=== PATIENT | male | born 1995 | race Hispanic/Latino ===

== ENCOUNTER 2022-02-14 16:28 | Emergency (ER) | payer BC, SELFPAY ==
[2022-02-14] MEDS ORDERED: Dicyclomine 20 MG/2 ML VIAL ONE (16:57)
[2022-02-14] MEDS ORDERED: Ondansetron ODT 4 MG TAB ONE (16:58)
== END 2022-02-14 17:50 | disposition home or self-care (01) ==
LOC: CSHERS 16:28
DX: R11.2 Nausea with vomiting, unspecified (principal); R19.7 Diarrhea, unspecified
CPT/HCPCS: 96372; 99283; Q0162